=== PATIENT | female | born 1950 | race Caucasian/White ===

== ENCOUNTER 2022-05-27 09:09 | Emergency (ER) | payer BC ==
[2022-05-27] VITALS (9 sets, daily range): BP systolic 154–221; BP diastolic 61–89
[~2022-05-27] VITALS: Ht 167.6 cm; Wt 86.0 kg
[2022-05-27] MEDS ORDERED: ATORVASTATIN CA40 MG PO (09:44)
[2022-05-27] MEDS ORDERED: SERTRALINE50 MG PO (09:45)
[2022-05-27] MEDS ORDERED: ATIVAN1 MG PO (09:45)
[2022-05-27] MEDS ORDERED: METOPROL TAR25 MG PO (09:46)
[2022-05-27] MEDS ORDERED: GLIMEPIRIDE2 MG PO (09:46)
[2022-05-27] MEDS ORDERED: RAMIPRIL2.5 MG PO (09:47)
[2022-05-27 10:44] LABS: HEMATOCRIT 39.7 % (37.0-47.0); HEMOGLOBIN 13.4 g/dl (12.0-16.0); IMMATURE GRANULOCYTES 0.3 % (0.0-5.0); MEAN CELL VOLUME 93.4 fL CALC (80.0-100.0); MEAN CORPUSCULAR HGB 31.5 pG CALC (26.0-32.0); MEAN CORPUSCULAR HGB CONC 33.8 g/dL CAL (32.0-36.0); NEUT# 6.82 thou/uL (2.00-7.15); RED BLOOD COUNT 4.25 mill/uL (4.20-5.60); RED CELL DISTRI WIDTH 12.5 % (11.5-15.5)
[2022-05-27 11:00] LABS: ALBUMIN 4.3 g/dL (3.2-5.0); BILIRUBIN, TOTAL 0.6 mg/dL (0.0-1.4); CREATININE 1.2 mg/dL (0.5-1.0); POTASSIUM 4.1 mmol/l (3.5-5.1); TOTAL PROTEIN 7.9 g/dL (6.3-8.2)
== END 2022-05-27 12:22 | disposition home or self-care (01) | DRG 103 ==
LOC: ED 09:09
PROVIDERS: Family Medicine
DX: R51.9 Headache, unspecified (principal); I10 Essential (primary) hypertension; E11.9 Type 2 diabetes mellitus without complications; I25.10 Atherosclerotic heart disease of native coronary artery without angina pectoris; Z95.1 Presence of aortocoronary bypass graft; Z20.822 Contact with and (suspected) exposure to COVID-19